=== PATIENT | female | born 1995 | race Caucasian/White ===

== ENCOUNTER 2021-01-12 15:40 | Outpatient (REF) | payer OTHER, SELFPAY ==
--- NOTE | ~2021-01-12 | XR_ITS ---
EXAMINATION: XR FOOT, RIGHT CLINICAL INFORMATION: S90.30XA - Contusion of unspecified foot, initial encounter COMPARISON: None TECHNIQUE: AP, lateral, and oblique views of the right foot. FINDINGS: There is no visible acute or healing fracture, dislocation, destructive process. Bony mineralization is normal. There is no focal joint narrowing or erosive change. The retrocalcaneal recess is preserved. Subtalar joint unremarkable. XR/XR foot RT min 3V IMPRESSION: Normal right foot.
== END 2021-01-12 15:41 | disposition home or self-care (01) ==
LOC: HO.HMGCX 15:40
PROVIDERS: PCP Pediatrics; Visit Provider Internal Medicine
DX: S90.31XA Contusion of right foot, initial encounter (principal); X58.XXXA Exposure to other specified factors, initial encounter; Y93.9 Activity, unspecified; Y92.9 Unspecified place or not applicable; Y99.9 Unspecified external cause status
CPT/HCPCS: 73630